=== PATIENT | female | born 1970 | race Caucasian/White ===

== ENCOUNTER → 2021-01-27 | Day surgery (SDC) | payer OTHER ==
[~2021-01-27] VITALS: Ht 157.5 cm; Wt 70.3 kg
[2021-01-27 07:36] LABS: HCG (URINE) SCREEN NEGATIVE (NEGATIVE)
== END | disposition home or self-care (01) ==
LOC: FAS 07:15
PROVIDERS: Anesthesiology
DX: Q65.89 Other specified congenital deformities of hip (principal); M16.11 Unilateral primary osteoarthritis, right hip; S73.191A Other sprain of right hip, initial encounter; M25.851 Other specified joint disorders, right hip; Z88.0 Allergy status to penicillin
CPT/HCPCS: 76000; 84703; J1040; J2001; J2250; J2704; J3010; J7120; Q9967

== ENCOUNTER 2022-02-02 05:33 | Day surgery (SDC) | payer OTHER ==
[~2022-02-02] VITALS: Ht 158 cm; Wt 66.0 kg
[~2022-02-02 05:33] MED LIST: MOTRIN600 MG PO
[2022-02-02 06:17] LABS: HCG (URINE) SCREEN NEGATIVE (NEGATIVE)
[2022-02-03 06:23] LABS: BASOPHIL 0.2 % (0-2); EOSINOPHIL 0 % (0-5); HCT 35.2 % (37.0-47.0); HGB 11.7 g/dl (12.5-16.0); LYMPHOCYTE 11.1 % (15-48); MCH 30.3 pg (25.0-31.0); MCHC 33.2 g/dL (32.0-36.0); MCV 91.2 fL (78.0-100.0); MONOCYTE 6.8 % (0-12); NEUTROPHIL 81.3 % (41-80); NRBC 0; PLT 265 K/uL (150-400); RBC 3.86 M/uL (4.20-5.40); RDW 12.1 % (11.5-14.0); WBC 20.6 K/uL (4.0-10.5)
[2022-02-03 07:03] LABS: BUN/CREAT RATIO (CALC) 20.3 RATIO; CREATININE 0.64 mg/dL (0.51-0.95); POTASSIUM 3.7 mmol/L (3.5-5.1)
[2022-02-03] MEDS ORDERED: ASPIRIN81 MG PO (08:15)
[2022-02-03] MEDS ORDERED: FEOSOL325 MG PO (08:15)
[2022-02-03] MEDS ORDERED: ONDANSETRON HCL4 MG PO (08:15)
== END 2022-02-03 11:16 | disposition home or self-care (01) ==
LOC: FMS 05:33 → FAS 05:33 → FOR 07:00 → FMS 08:50 → FAS 02-03 11:16
PROVIDERS: Anesthesiology; Orthopaedic Surgery
DX: M16.11 Unilateral primary osteoarthritis, right hip (principal); S73.001A Unspecified subluxation of right hip, initial encounter
CPT/HCPCS: 0054T; 27130; 36415; 73501; 76000; 80048; 84703; 85025; 86850; 86900; 86901; 94010; 94760; 94762; 97110; 97116; 97161; 97165; 97535; C1776; J0171; J1100; J1170; J1885; J2250; J2270; J2405; J2704; J2795; J3010; J3370; J7050; J7120